=== PATIENT | female | born 1980 | race American Indian/Alaskan Native ===

== ENCOUNTER 2018-05-27 09:39 | Emergency (ER) | payer MEDICAID, OTHER ==
[2018-05-27 10:04] VITALS: BP 126/84
--- NOTE | 2018-05-27 10:45 | Emergency Department Report ---
ED Headache HPI - General Chief Complaint: Headache Stated Complaint: DIZZINESS/ HEADACHE Time Seen by Provider: 05/27/18 10:32 - History of Present Illness Initial Comments: Patient is a 37 years old female with no significant past medical history. Patient presented to the ER complaining of headache for the last 3 days associated with lightheadedness. Patient stated that her blood pressure was 142 /86 yesterday at her job. Patient denied any focal weakness numbness or tingling sensation. No bowel or bladder incontinence. No history of head injury. Quality: moderate Recent Head Trauma: no recent headache/trauma Modifying Factors: worse with: cold therapy, exposure to light, immobilization, medication, movement, rest, other Associated Symptoms: denies: denies symptoms, confusion, fatigue, facial pain, fever/chills, flushing, loss of consciousness, nausea/vomiting, nasal congestion , nasal drainage, numbness in legs/feet, rash, seizures, sinus infection, stiff neck, vision changes, weakness, other Allergies/Adverse Reactions: Allergies latex Allergy (Verified 02/15/14 16:43) Hives Home Medications: Ambulatory Orders Vit/Iron Fum/Folic AC [ Vitamin Tablet] 1 each PO QDAY #90 tablet 03/09/14 Docusate Sodium [Colace] 100 mg PO BID PRN #60 capsule 10/29/14 Ferrous Sulfate [Feosol 325 MG tab] 325 mg PO BID #60 tablet 10/29/14 Ibuprofen [Motrin] 800 mg PO Q8H PRN #60 tablet 10/29/14 oxyCODONE /ACETAMINOPHEN [Percocet 5/325] 1 tab PO Q6HR PRN #45 tablet 10/29/14 Ibuprofen [Motrin 800 MG tab] 800 mg PO TID PRN #30 tablet 10/30/14 ED Review of Systems ROS: Stated complaint: DIZZINESS/ HEADACHE Other details as noted in HPI Comment: All other systems reviewed and negative Constitutional: denies: chills, fever Respiratory: denies: cough, shortness of breath Cardiovascular: denies: chest pain, palpitations, dyspnea on exertion Gastrointestinal: denies: abdominal pain, nausea, vomiting Neurological: headache. denies: weakness, numbness, paresthesias, confusion, abnormal gait, vertigo ED Past Medical Hx - Past Medical History Hx Hypertension: No Hx Congestive Heart Failure: No Hx Diabetes: No Hx Deep Vein Thrombosis: No Hx Renal Disease: No Hx Sickle Cell Disease: No Hx Seizures: No Hx Asthma: No Hx COPD: No Hx HIV: No Additional medical history: acid reflux - Surgical History Past Surgical History?: Yes Additional Surgical History: - Social History Smoking Status: Never Smoker Substance Use Type: None - Medications Home Medications: Home Medications Medication Instructions Recorded Confirmed Last Taken Type Vit/Iron Fum/Folic AC 1 each PO QDAY #90 tablet 03/09/14 Unknown Rx [ Vitamin Tablet] Docusate Sodium [Colace] 100 mg PO BID PRN #60 capsule 10/29/14 Unknown Rx Ferrous Sulfate [Feosol 325 MG tab] 325 mg PO BID #60 tablet 10/29/14 Unknown Rx Ibuprofen [Motrin] 800 mg PO Q8H PRN #60 tablet 10/29/14 Unknown Rx oxyCODONE /ACETAMINOPHEN [Percocet 1 tab PO Q6HR PRN #45 tablet 10/29/14 Unknown Rx 5/325] Ibuprofen [Motrin 800 MG tab] 800 mg PO TID PRN #30 tablet 10/30/14 Unknown Rx ED Physical Exam - General Limitations: No Limitations General appearance: alert, in no apparent distress - Head Head exam: Present: atraumatic, normocephalic, normal inspection - Eye Eye exam: Present: normal appearance - ENT ENT exam: Present: normal exam, normal orophraynx, mucous membranes moist - Neck Neck exam: Present: normal inspection, full ROM. Absent: tenderness, meningismus, lymphadenopathy, thyromegaly - Respiratory Respiratory exam: Present: normal lung sounds bilaterally. Absent: respiratory distress, wheezes, rales, rhonchi, chest wall tenderness, accessory muscle use, decreased breath sounds, prolonged expiratory - Cardiovascular Cardiovascular Exam: Present: regular rate, normal rhythm, normal heart sounds - GI/Abdominal GI/Abdominal exam: Present: soft, normal bowel sounds. Absent: distended, tenderness, guarding, rebound, rigid, organomegaly, mass, bruit, pulsatile mass , hernia - Extremities Exam Extremities exam: Present: normal inspection, full ROM, normal capillary refill - Back Exam Back exam: Present: normal inspection, full ROM. Absent: tenderness, CVA tenderness (R), CVA tenderness (L), muscle spasm - Neurological Exam Neurological exam: Present: alert, oriented X3, CN II-XII intact, normal gait, reflexes normal - Skin Skin exam: Present: warm, intact, normal color ED Course Vital Signs 05/27/18 10:00 Temperature 98.5 F Pulse Rate 94 H Respiratory 16 Rate Blood Pressure 126/84 O2 Sat by Pulse 99 Oximetry ED Medical Decision Making - Lab Data Result diagrams: 05/27/18 11:06 05/27/18 11:02 - Radiology Data Radiology results: report reviewed Referring Physician: DWIGHT HENNESSY Patient Name: RISSA HANCOCK Date of : 1980 Sex: Female Report Date: 2018-05-27 Report Status: Finalized Findings [facility] [address] [place] [address] Cat Scan Report Signed Patient: RISSA HANCOCK MR#: [id number] : 1980 Acct:[id number] Age/Sex: 37 / F ADM Date: 05/27/18 Loc: ED Attending Dr: Ordering Physician: DWIGHT HENNESSY Date of Service: 05/27/18 Procedure(s): CT head/brain wo con Accession Number(s): [id number] cc: DWIGHT HENNESSY CT HEAD WITHOUT CONTRAST: HISTORY: Headache, dizziness. TECHNIQUE: Sequential 2.5mm CT images. COMPARISON: none. FINDINGS: Cerebral Parenchyma: Within normal limits. Cerebellum: Within normal limits. Brainstem: Within normal limits. Ventricles: Normal. Sella: Normal. Extra-axial spaces: Normal. Basal Cisterns: Normal. Intracranial Hemorrhage: None. Midline Shift: None. Calvarium: Normal. Sinuses: Normal. Mastoid Air Cells: Normal. Visualized Orbits: Normal. IMPRESSION: Cranial CT scan within normal limits. Transcribed By: TTR Dictated By: TOMI CLARK JR, MD Electronically Authenticated By: TOMI CLARK JR, MD Signed Date/Time: 05/27/18 1055 DD/ 1055 TD/TT: 05/27/18 1055 Critical care attestation.: If time is entered above; I have spent that time in minutes in the direct care of this critically ill patient, excluding procedure time. ED Disposition Clinical Impression: Headache, Hypertension Disposition: DC-01 TO HOME OR SELFCARE Is pt being admited?: No Condition: Stable Instructions: Acute Headache (ED), Hypertension (ED) Referrals: PRIMARY CARE, [Primary Care Provider] - 3-5 Days
[2018-05-27 11:08] LABS: Bilirubin,Urine NEG (Negative); Blood,Urine NEG (Negative); Color,Urine Yellow (Yellow); Mucus,Urine 3+ /HPF; Urobilinogen,Urine < 2.0 mg/dL (<2.0)
[2018-05-27 11:10] LABS: HCG Qualitative,Urine Negative (Negative)
--- NOTE | 2018-05-27 11:18 | Cat Scan Report ---
CT HEAD WITHOUT CONTRAST: HISTORY: Headache, dizziness. TECHNIQUE: Sequential 2.5mm CT images. COMPARISON: none. FINDINGS: Cerebral Parenchyma: Within normal limits. Cerebellum: Within normal limits. Brainstem: Within normal limits. Ventricles: Normal. Sella: Normal. Extra-axial spaces: Normal. Basal Cisterns: Normal. Intracranial Hemorrhage: None. Midline Shift: None. Calvarium: Normal. Sinuses: Normal. Mastoid Air Cells: Normal. Visualized Orbits: Normal. IMPRESSION: Cranial CT scan within normal limits.
[2018-05-27 11:35] LABS: Basophils % (Auto) 1.2 % (0.0-1.8); Eosinophils # (Auto) 0.1 K/mm3 (0.0-0.4); Eosinophils % (Auto) 1.8 % (0.0-4.3); Hemoglobin 9.2 gm/dl (10.1-14.3); Lymphocytes % (Auto) 37.1 % (13.4-35.0); Mean Corpuscular HGB Conc 30 % (30-34); Mean Corpuscular Hemoglobin 21 pg (28-32); Mean Corpuscular Volume 70 fl (79-97); Mean Platelet Volume 8.5 fl (6-12); Monocytes # (Auto) 0.5 K/mm3 (0.0-0.8); Monocytes % (Auto) 8.6 % (0.0-7.3); Platelet Count 371 K/mm3 (140-440); Red Blood Count 4.43 M/mm3 (3.65-5.03); Red Cell Distribution Width 19.8 % (13.2-15.2)
[2018-05-27 11:36] LABS: Basophils # (Auto) 0.1 K/mm3 (0.0-0.1)
[2018-05-27 11:42] LABS: BUN/Creatinine Ratio 20; Blood Urea Nitrogen 10 mg/dL (7-17); Calcium 8.9 mg/dL (8.4-10.2); Hemolysis Index 4
== END 2018-05-27 12:07 | disposition home or self-care (01) ==
LOC: ED 09:39
DX: I10 Essential (primary) hypertension (principal); R42 Dizziness and giddiness; Z91.040 Latex allergy status
CPT/HCPCS: 36415; 70450; 80048; 81001; 81025; 85025